=== PATIENT | female | born 1965 | race Caucasian/White ===

== ENCOUNTER 2019-09-21 11:10 | Outpatient (CLI) | payer OTHER, SELFPAY | END 2019-09-21 11:11 | disposition home or self-care (01) | LOC: ANHAUDIO 11:11 | PROVIDERS: PCP Physician Assistant; Visit Provider Physician Assistant | DX: H90.3 Sensorineural hearing loss, bilateral (principal) | CPT/HCPCS: 92557; 92567 ==

== ENCOUNTER 2020-02-20 07:00 | Outpatient (RCR) | payer OTHER, SELFPAY | END 2020-02-20 23:59 | disposition home or self-care (01) | LOC: ANHAUDIO 07:00 | PROVIDERS: PCP Physician Assistant; Visit Provider Physician Assistant | DX: Z46.1 Encounter for fitting and adjustment of hearing aid (principal) | CPT/HCPCS: 99199; V5261 ==

== ENCOUNTER 2020-06-04 15:00 | Outpatient (RCR) | payer OTHER, SELFPAY | END 2020-06-04 23:59 | disposition home or self-care (01) | LOC: ANHAUDIO 15:00 | PROVIDERS: PCP Physician Assistant; Visit Provider Physician Assistant | DX: Z46.1 Encounter for fitting and adjustment of hearing aid (principal) | CPT/HCPCS: 99199 ==

== ENCOUNTER → 2020-10-01 06:45 | Outpatient (CLI) | payer OTHER, SELFPAY ==
[2020-10-01 18:26] LABS: SARS-CoV-2 RNA PCR Negative
== END ==
PROVIDERS: PCP Family Medicine; Visit Provider Physician Assistant
DX: Z20.822 Contact with and (suspected) exposure to COVID-19 (principal); R09.89 Other specified symptoms and signs involving the circulatory and respiratory systems
CPT/HCPCS: C9803; U0003; U0005

== ENCOUNTER 2021-01-22 15:30 | Outpatient (RCR) | payer OTHER, SELFPAY | END 2021-01-22 23:59 | disposition home or self-care (01) | LOC: ANHAUDIO 15:30 | PROVIDERS: PCP Family Medicine; Referring Provider Family Medicine; Visit Provider Family Medicine | DX: Z46.1 Encounter for fitting and adjustment of hearing aid (principal) | CPT/HCPCS: 99199 ==

== ENCOUNTER 2021-02-26 13:58 | Outpatient (RCR) | payer OTHER, SELFPAY | END 2021-02-26 23:59 | disposition home or self-care (01) | LOC: ANHAUDIO 13:58 | PROVIDERS: PCP Family Medicine | DX: Z46.1 Encounter for fitting and adjustment of hearing aid (principal) | CPT/HCPCS: 99199 ==

== ENCOUNTER 2021-04-23 16:32 | Outpatient (CLI) | payer OTHER, SELFPAY ==
--- NOTE | ~2021-04-23 | MM_ITS ---
EXAMINATION: MM scrn meek implant BI w tayla HISTORY: Screening mammogram TECHNIQUE: Craniocaudal and mediolateral oblique 3-D tomosynthesis images with implant displacement a nd synthetic 2-D images were generated. Craniocaudal and mediolateral oblique views of the breasts wi thout implant displacement were obtained using full field digital mammography. CAD analysis was submi tted and interpreted. COMPARISON: 05/08/2019, 05/05/2018, 03/18/2017 bilateral implant screening mammogram examinations BREAST PARENCHYMAL COMPOSITION: There are scattered areas of fibroglandular density. FINDINGS: Status post bilateral augmentation mammoplasty. There is no evidence of suspicious mass, ca lcification, or architectural distortion to suggest malignancy in either breast. There has been no darnell spicious interval change. IMPRESSION: 1. No mammographic evidence of malignancy. 2. Recommend routine screening mammography in one year. 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
== END 2021-04-23 16:33 | disposition home or self-care (01) ==
LOC: ANHIMG 16:34
PROVIDERS: PCP Family Medicine; Visit Provider Physician Assistant
DX: Z12.31 Encounter for screening mammogram for malignant neoplasm of breast (principal)
CPT/HCPCS: 77063; 77067

== ENCOUNTER 2022-02-16 11:30 | Outpatient (RCR) | payer OTHER, SELFPAY | END 2022-02-16 23:59 | disposition home or self-care (01) | LOC: ANHAUDIO 11:30 | PROVIDERS: PCP Family Medicine; Visit Provider Physician Assistant | DX: Z46.1 Encounter for fitting and adjustment of hearing aid (principal) | CPT/HCPCS: 99199 ==

== ENCOUNTER 2022-08-30 11:35 | Outpatient (CLI) | payer OTHER, SELFPAY ==
--- NOTE | ~2022-08-30 | XR_ITS ---
XR thoracic spine 3V DATE: 08/30/2022 12:25 INDICATION: Right back pain. No known injury. TECHNIQUE: AP, lateral, swimmer views COMPARISON: None FINDINGS: There is mild upper thoracic dextroscoliosis and mid to lower thoracic levoscoliosis. There is mild degenerative spurring of the thoracic spine. No fracture or dislocation or bone destruction is detected. The thoracic pedicles are intact. No para spinal soft tissue thickening. Calcifications overlie the right kidney. IMPRESSION: Mild to moderate scoliosis and degenerative change of the thoracic spine Reviewed, dictated and finalized at location B.
--- NOTE | ~2022-08-30 | XR_ITS ---
XR cervical spine 4-5V DATE: 08/30/2022 12:25 INDICATION: Right neck pain. No known injury. TECHNIQUE: AP, open-mouth, lateral, odontoid and bilateral oblique views COMPARISON: None FINDINGS: There is mild dextroscoliosis of the cervical spine. C1 and C2 are normally aligned and the odontoid process is intact. No fracture or dislocation or lock ed facet or prevertebral soft tissue swelling. There is slight retrolisthesis at C3-4. There is mild loss of interspace height and anterior spurring at C5-6. There is minimal anterolisthes is at C5-6. There is moderate uncovertebral joint spurring on the right at C5-6. There is mild anterior spurring at C6-7. IMPRESSION: Mild cervical spondylosis, most prominent at C5-6, including moderate degenerative spurri ng of the right C5-6 uncovertebral joint Reviewed, dictated and finalized at location B. IMPRESSION: Mild cervical spondylosis, most prominent at C5-6, including modera te degenerative spurring of the right C5-6 uncovertebral joint
== END 2022-08-30 11:36 | disposition home or self-care (01) ==
PROVIDERS: PCP Family Medicine; Visit Provider Physician Assistant
DX: M54.9 Dorsalgia, unspecified (principal); M41.84 Other forms of scoliosis, thoracic region; M43.02 Spondylolysis, cervical region; M77.8 Other enthesopathies, not elsewhere classified; M46.02 Spinal enthesopathy, cervical region
CPT/HCPCS: 72050; 72072

== ENCOUNTER 2022-12-04 11:31 | Outpatient (CLI) | payer OTHER, SELFPAY ==
--- NOTE | ~2022-12-04 | MM_ITS ---
EXAMINATION: MM scrn meek implant BI w tayla HISTORY: Screening mammogram TECHNIQUE: Craniocaudal and mediolateral oblique 3-D tomosynthesis images with implant displacement a nd synthetic 2-D images were generated. Craniocaudal and mediolateral oblique views of the breasts wi thout implant displacement were obtained using full field digital mammography. CAD analysis was submi tted and interpreted. COMPARISON: 04/23/2021, 05/08/2019, 05/05/2018 bilateral implant screening mammogram examinations BREAST PARENCHYMAL COMPOSITION: There are scattered areas of fibroglandular density. FINDINGS: Status post bilateral augmentation mammoplasty. There is no evidence of suspicious mass, ca lcification, or architectural distortion to suggest malignancy in either breast. There has been no darnell spicious interval change. IMPRESSION: 1. No mammographic evidence of malignancy. 2. Recommend routine screening mammography in one year. BI-RADS Category 1: Negative Reviewed, dictated and finalized at location A.
== END 2022-12-04 11:32 | disposition home or self-care (01) ==
LOC: ANHIMG 11:33
PROVIDERS: PCP Physician Assistant; Visit Provider Physician Assistant
DX: Z12.31 Encounter for screening mammogram for malignant neoplasm of breast (principal)
CPT/HCPCS: 77063; 77067

== ENCOUNTER 2024-02-14 11:43 | Outpatient (CLI) | payer OTHER, SELFPAY ==
--- NOTE | ~2024-02-14 | XR_ITS ---
EXAMINATION: XR finger 1st LT min 2V DATE: 02/14/2024 12:16 INDICATION: Left thumb injury and pain. TECHNIQUE: 3 views of left thumb were obtained. COMPARISON: None. FINDINGS: Alignment is normal. No fracture. There is mild osteoarthritis of first carpometacarpal sanya nt and first metacarpophalangeal joint. IMPRESSION: 1. Mild polyarticular osteoarthritis. Reviewed, dictated and finalized at location A.
== END 2024-02-14 11:44 | disposition home or self-care (01) ==
LOC: MICIMG 11:45
PROVIDERS: PCP Family Medicine; Visit Provider Family Medicine
DX: M15.9 Polyosteoarthritis, unspecified (principal); S69.92XA Unspecified injury of left wrist, hand and finger(s), initial encounter
CPT/HCPCS: 73140

== ENCOUNTER 2024-05-25 15:35 | Outpatient (CLI) | payer OTHER, SELFPAY ==
--- NOTE | ~2024-05-25 | MM_ITS ---
EXAMINATION: MM screening mammo implant BI HISTORY: Screening mammogram TECHNIQUE: Craniocaudal and mediolateral oblique 3-D tomosynthesis images with implant displacement a nd synthetic 2-D images were generated. Craniocaudal and mediolateral oblique views of the breasts wi thout implant displacement were obtained using full field digital mammography. CAD analysis was submi tted and interpreted. COMPARISON: Comparison to multiple prior studies sequentially, with oldest reviewed study dated 01/28. BREAST PARENCHYMAL COMPOSITION: Not dense: There are scattered areas of fibroglandular density. FINDINGS: There is no evidence of suspicious mass, calcification, or architectural distortion to sugg est malignancy in either breast. There has been no suspicious interval change. IMPRESSION: 1. No mammographic evidence of malignancy. 2. Recommend routine screening mammography in one year. 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
--- OUTSIDE RECORDS SUMMARY | 2024-05-29 02:06 | XMS_ITS | CONTINUITY OF CARE DOCUMENT ---
Author Name leticia kelly Address Unknown Organization [facility] Address [id number] [place] [address] [address] [place] [address] Phone [phone] Care Team Providers Care Employment Service Specialist Name Role Phone London Lim MD Unavailable London Lim MD Unavailable [phone] Kena Katz Unavailable [phone] PROBLEMS Condition Status Date Provider Notes Hypertension active London Lim MD Hypothyroidism active London Lim MD Depression / anxiety active London Lim MD Chest tightness active London Lim MD Dyspnea on exertion active London Lim MD CAD active London Lim MD ENCOUNTERS Date Type Provider Location Encounter Diag nosis - In-person encounter Office Visit London Lim MD [facility] - In-person encounter Office Visit London Lim MD [facility] CAD - In-person encounter Office Visit London Lim MD [facility] HypertensionHypothyroidismDepression / anxietyChest tightnessDyspnea on exertion VITAL SIGNS Date Observation Value Provider Body Mass Index (Ratio) 24.56 kg/m2 Tameka Lim MD blood pressure, diastolic 74 mm[Hg] Alexx Link blood pressure, systolic 151 mm[Hg] Mary Link oxygen saturation, oximetry 96 % Alexxarodustin Link pulse rate 80 /min Alexxaron Link blood pressure, cuff size regular Alexx geneva Link weight E&M 130 [lb_av] Alexxaron Link height E&M 61 [in_i] Alexxaron Link Body Mass Index (Ratio) 23.24 kg/m2 Tameka Lim MD blood pressure, cuff size regular Cali montiel Raygoza blood pressure, diastolic 80 mm[Hg] Ta tiana Raygoza blood pressure, systolic 120 mm[Hg] Tab itha Raygoza oxygen saturation, oximetry 95 % Roxann Raygoza pulse rate 75 /min Roxann Raygoza weight E&M 123 [lb_av] Roxann Raygoza respiratory rate E&M 12 /min Roxann Raygoza height E&M 61 [in_i] Roxann Raygoza weight E&M 123 [lb_av] Shanda Riberaoralian g blood pressure, diastolic 78 mm[Hg] Cinthia nkLogic blood pressure, systolic 134 mm[Hg] Agatha kLogic Body Mass Index (Ratio) 23.24 kg/m2 Tameka Lim MD blood pressure, cuff size regular Jonatan rret blood pressure, diastolic 78 mm[Hg] Jonatan rret blood pressure, systolic 134 mm[Hg] Valdez ret pulse rate 61 /min Derrek ermer y height E&M 61 [in_i] Derrek erda y oxygen saturation, oximetry 99 % Derrek respiratory rate E&M 16 /min Derrek weight E&M 123 [lb_av] Derrek Macias y ALLERGIES Allergy Name Onset Date Reaction Criticality Status SUMATRIPTAN High Criticality active RESULTS Date Observation Value Provider Reference Range Interpretation Location cholesterol, non-HDL, total 116 MG/DL (CALC) [facility] <130 Normal cholesterol/HDL ratio, serum, percent 2.5 (calc) [facility] <5.0 Normal LDL cholesterol, serum 102 MG/DL (CALC) [facility] High triglyceride, serum, fasting 62 mg/dL [facility] <150 Normal HDL cholesterol, serum 79 mg/dL [facility] > OR = 50 Normal cholesterol, serum 195 mg/dL [facility] <200 Normal HISTORY OF MEDICATION USE Medication Status Instructions Dates Provider Indications Com ments rosuvastatin 5 mg tablet active Take 1 tablet by mouth once daily 7 London Lim MD ascorbic acid (vitamin C) 1,000 mg tablet active Kyaron Link Asprin active Take 1 tablet in mouth once a day Alexxaron Link bupropion HCl active Kyaron Lnik cholecalciferol active Kyaron Link cyanocobalamin (vitamin B-12) 1,000 mcg tablet active Kyaron Link lorazepam 0.5 mg tablet active nightly prn Dana Montes NP bupropion HCl 300 mg tablet extended release 24 hr active daily Dana Montes NP atenolol 25 mg tablet active TAKE 1 TABLET BY MOUTH ONCE DAILY Dana Montes NP Synthroid 100 mcg tablet active 1 tab M-F, 2 tabs Sat and Sun Dana Montes NP losartan 50 mg tablet active Take 1 tablet by mouth once a day Dana Montes NP SOCIAL HISTORY Date Observation Value Provider smoking status Never smoker London Lim MD smoking status Never smoker Derrek ramos FUNCTIONAL STATUS Date Observation Value Provider HRA, CV Assess/Plan, Angina (inactive) Management Plan continue current therapy London Lim MD HRA, CV Assess/Plan, Angina (inactive) Management Plan continue current therapy Lonodn Lim MD FAMILY HISTORY Family Member Condition Paternal Grandfather CAD male <55 Father CAD male <55 Paternal Grandfather DE male <55 Father DE male <55 INSURANCE PROVIDERS Payer name Policy type / Coverage type Melba red libertarian ID [employer] CHOICE POS II [place] insurance [employer] [id number] ADVANCE DIRECTIVES Name Date DISCUSSED - NO DECISION MADE TREATMENT PLAN Date Name Performer Cardiology London Lim MD Cardiology: H er updated medication list for this problem includes: Atenolol 25 Mg Tablet (Atenolol) ..... Take 1 tablet by mouth once daily Losartan 50 Mg Tablet (Losartan) ..... Take 1 tablet by mouth once a day BP today: 151/74 P rior BP: 120/80 (01/19/2024) Labs Reviewed: C hol: 195 (09/23/2023) HDL: 79 (09/23/2023) LDL: 102 MG/DL (CALC) (09/23/2023) T (09/23/2023) London Lim MD Cardiology: E cho showed mild to moderate MR colton enies any sob London Lim MD Cardiology:Start sta tin T his visit has been a part of the consistent, comprehensive, and ongoing management of the chronic medical condition(s) listed above for the patient. CHOL: 195 (09/23/2023) LDL: 102 MG/DL (CALC) (09/23/2023) HDL: 79 (09/23/2023) T (09/23/2023) London Lim MD Cardiology:BP well c ontrolled F /u in 3 months to asses pressures B P today: 120/80 P rior BP: 134/78 (09/09/2023) Labs Reviewed: C hol: 195 (09/23/2023) HDL: 79 (09/23/2023) LDL: 102 MG/DL (CALC) (09/23/2023) T (09/23/2023) Her updated medication list for this problem includes: Atenolol 25 Mg Tablet (Atenolol) ..... Take 1 tablet by mouth once daily Hydrochlorothiazide 25 Mg Tablet (Hydrochlorothiazide) ..... Take 1 tablet daily Losartan 50 Mg Tablet (Losartan) ..... Take 1 tablet by mouth once a day London Lim MD Cardiology:Ca score 6 in LAD W ill have her send blood work that London Lim MD Cardiology:Ca score 6 in LAD Skylar Lim MD Cardiology:denies London Lim Usama Shaver Cardiology:Echo show ed mild to moderate MR colton enies any sob London Lim MD Cardiology:see #1 w ill check ECHO, routine stress, CCS Dana Montes NP Cardiology: pt state s that she has a signficant family history of premature CAD (age 45 massive DE), PGF (age 40-44 massive DE). pt reports that she has been experincing increased fatigue, decreased activity tolerance, increased RILEY especially with stair climbing, intermittent chest tightness that she associates that with Increased stress, lightheadedness, but denies any palpitations, increased BLE edema, orthopnea, PND or syncope. Pt does report 'a lot of belching lately.' pt reports that she has been under a lot of stress from work. will check routine stress test, ECHO. and CCS Dana Montes NP Cardiology: H er updated medication list for this problem includes: Synthroid 100 Mcg Tablet (Levothyroxine) ..... 1 tab m-f, 2 tabs sat and sun Dana Montes NP Cardiology: B P today: 134/78 Her updated medication list for this problem includes: Atenolol 25 Mg Tablet (Atenolol) ..... Take 1 tablet by mouth once daily Hydrochlorothiazide 25 Mg Tablet (Hydrochlorothiazide) ..... Take 1 tablet daily Losartan 50 Mg Tablet (Losartan) ..... Take 1 tablet by mouth once a day Dana Montes NP Date Name HEMOGLOBIN A1c LIPID PANEL COMPREHENSIVE METABO LIC PANEL, W/EGFR CT, Coronary Calcium Score LIPID PANEL Lipoprotein (a) CT, Coronary Calcium Score Complete Echo Stress Routine HISTORY OF PROCEDURES Procedure Date Procedure Name Provider Procedure Notes S tatus Complex e/m visit add on London Lim MD completed Complex e/m visit add on London Lim MD completed CT- Coronary CA score London Lim MD completed EKG London Lim MD completed
== END 2024-05-25 15:36 | disposition home or self-care (01) ==
LOC: ANHIMG 15:48
PROVIDERS: PCP Family Medicine; Visit Provider Physician Assistant
DX: Z12.31 Encounter for screening mammogram for malignant neoplasm of breast (principal)
CPT/HCPCS: 77067

== ENCOUNTER 2024-09-27 11:00 | Outpatient (RCR) | payer OTHER, SELFPAY | END 2024-11-29 23:59 | disposition home or self-care (01) | LOC: ANHAUDASC 11:00 | PROVIDERS: PCP Family Medicine; Visit Provider Family Medicine | DX: Z46.1 Encounter for fitting and adjustment of hearing aid (principal) | CPT/HCPCS: 99199; V5014 ==

== ENCOUNTER 2025-03-04 15:00 | Outpatient (RCR) | payer OTHER, SELFPAY | END 2025-03-13 23:59 | disposition home or self-care (01) | LOC: ANHAUDASC 15:00 | PROVIDERS: PCP Family Medicine; Visit Provider Family Medicine | DX: Z46.1 Encounter for fitting and adjustment of hearing aid (principal) | CPT/HCPCS: 99199; V5014 ==

== ENCOUNTER 2025-03-22 08:24 | Outpatient (RCR) | payer OTHER, SELFPAY ==
[2025-03-22 08:29] VITALS: BMI 24.5
== END 2025-06-10 12:49 | disposition home or self-care (01) ==
LOC: ANHDMC 08:24
PROVIDERS: PCP Family Medicine
DX: Z71.3 Dietary counseling and surveillance (principal)
CPT/HCPCS: 97802

== ENCOUNTER 2025-05-31 14:27 | Outpatient (CLI) | payer OTHER, SELFPAY ==
--- NOTE | ~2025-05-31 | MM_ITS ---
EXAMINATION: MM scrn meek implant BI w tayla INDICATION: Asymptomatic, referred for screening mammogram COMPARISON: 05/25/2024 through 05/05/2018 TECHNIQUE: Digital Breast Tomosynthesis CC, MLO, and implant displaced CC and MLO views of Both breasts were obtained with computer-aided detection to assist in interpretation of the study. FINDINGS: The breasts are heterogeneously dense, which may obscure small masses. Bilateral breast Retropectoral Silicone implants in place appears intact. No focal dominant mass, architectural distortion, or suspicious microcalcifications are identified. There are no features to suggest malignancy. IMPRESSION: 1. No evidence of malignancy in the breasts. 2. Both breasts Retropectoral Silicone implants appears intact. Recommend continued screening mammography BI-RADS 1, NEGATIVE Reviewed, dictated and finalized at location A. 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
== END 2025-05-31 14:28 | disposition home or self-care (01) ==
LOC: ANHFOHIMG 14:35
PROVIDERS: PCP Family Medicine
DX: Z12.31 Encounter for screening mammogram for malignant neoplasm of breast (principal); Z98.82 Breast implant status
CPT/HCPCS: 77063; 77067